=== PATIENT | male | born 1985 | race Caucasian/White ===

== ENCOUNTER 2020-02-24 12:15 | Emergency (ER) | payer OTHER ==
[~2020-02-24] VITALS: Ht 188 cm; Wt 136.1 kg
[2020-02-24] MEDS ORDERED: ZITHROMAX250 MG PO (13:52)
== END 2020-02-24 15:51 | disposition home or self-care (01) ==
LOC: ED 12:15
DX: U07.1 COVID-19 (principal); J12.89 Other viral pneumonia; Z87.891 Personal history of nicotine dependence; Z88.1 Allergy status to other antibiotic agents; Z88.8 Allergy status to other drugs, medicaments and biological substances
CPT/HCPCS: 71045; 80053; 83605; 85025; 87040; 96361; 96374; 99284-25; J1100; J7030